=== PATIENT | male | born 1990 ===

== ENCOUNTER 2019-11-24 12:08 | Emergency (ER) | payer SELFPAY ==
[2019-11-24 13:02] VITALS: BP 111/80
--- NOTE | 2019-11-24 13:23 | UC ---
General HPI - HPI Summary HPI Summary: Patient here with his two brothers. They all work in the [employer]. He starts work at 5:30 AM normally gets about 5-6 hours of sleep a night (brothers states he does on occasion sleep for 10 hours) Went to heat up his breakfast around 9 and had a full tonic clonic seizure lasting about 5 minutes. EMS arrived and offered to take him to [place] but they were told it was not a good hospital so they came to [facility] urgent care. Patient denies any etOH or drug use. No recent illness or stressors. He had a seizure a year ago and was supposed to follow up with neurology but due to insurance reasons did not get in to see them. Prior to a year ago he had a seizure 6 years prior to that. MEds; reviewed Denies any symptoms at this time. No H/A. No SOB or CP - History of Current Complaint Chief Complaint: UCGeneralIllness Stated Complaint: SEIZURE Time Seen by Provider: 11/24/19 13:02 Pain Intensity: 4 - Allergy/Home Medications Allergies/Adverse Reactions: Allergies Allergy/AdvReac Type Severity Reaction Status Date / Time No Known Allergies Allergy Verified 11/24/19 12:51 Home Medications: Home Medications Ibuprofen TAB* [Advil TAB*] 200 mg PO Q6H PRN 11/24/19 [History Confirmed ] PMH/Surg Hx/FS Hx/Imm Hx Neurological History: Seizures - Surgical History Surgical History: None - Social History Alcohol Use: None Substance Use Type: None Smoking Status (MU): Never Smoked Tobacco Review of Systems All Other Systems Reviewed And Are Negative: Yes Physical Exam Triage Information Reviewed: Yes Appearance: Well-Appearing Vital Signs: Initial Vital Signs Temp 98.2 F 11/24/19 12:53 Pulse 78 11/24/19 12:53 Resp 15 11/24/19 12:53 BP 111/80 11/24/19 12:53 Pulse Ox 98 11/24/19 12:53 Vital Signs Reviewed: Yes ENT: Positive: Normal ENT inspection Neck: Positive: Supple, Nontender Respiratory: Positive: Lungs clear, Normal breath sounds Cardiovascular: Positive: RRR, No Murmur Neurological Exam: Normal Course/Dx - Course Course Of Treatment: This is a 29 yr old mostly german speaking who presents to urgent care after having a seizure this morning. Patients needs more of a workup than we can do here and likely a neurology consultation Declined EMS ride to [place]. [facility] does not have a neurologist Brothers are going to drive him directly to [facility] for further work up Sign out at [place] ER given to ALLEN Cazares - Diagnoses Provider Diagnosis: Seizure Discharge ED - Sign-Out/Discharge Documenting (check all that apply): Patient Departure All imaging exams completed and their final reports reviewed: No Studies - Discharge Plan Condition: Fair Disposition: HOME-RECOMMEND TO ED Patient Education Materials: Generalized Tonic Clonic Seizures (ED) Referrals: No Primary Care Phys,NOPCP [Primary Care Provider] - Additional Instructions: Recommend having your family drive you directly to [facility]'s Emergency Room for further work-up for your seizure [address] [place] - Billing Disposition and Condition Condition: FAIR Disposition: Home-Recommend to ED
== END 2019-11-24 13:23 | disposition home health service (06) ==
LOC: UCCORT 12:08
DX: R56.9 Unspecified convulsions (principal)
CPT/HCPCS: 99202; G0463

== ENCOUNTER 2019-11-24 14:17 | Emergency (ER) | payer SELFPAY ==
[2019-11-24 15:45] LABS: ABS Lymphocytes 1.2 10^3/ul (1.0-4.8); ABS Monocytes 0.4 10^3/ul (0-0.8); ABS Neutrophils 5.1 10^3/ul (1.5-7.7); Eosinophil % 0.2 %; Hematocrit 45 % (42-52); Hemoglobin 15.7 g/dL (14.0-18.0); Lymphocyte % 17.9 %; Mean Corpuscular HGB Conc 35 g/dL (31-36); Mean Corpuscular Hemoglobin 31 pg (27-31); Mean Corpuscular Volume 89 fL (80-94); Mean Platelet Volume 7.6 fL (7.4-10.4); Platelet Count 211 10^3/uL (150-450); Red Blood Count 5.05 10^6 /uL (4.18-5.48); Red Cell Distribution Width 13 % (10-15); White Blood Count 6.8 10^3/uL (3.5-10.8)
[2019-11-24 15:53] LABS: INR 1.03 (0.82-1.09)
[2019-11-24 16:06] LABS: Albumin 4.6 g/dL (3.2-5.2); Albumin/Globulin Ratio 1.9 (1-3); BUN/Creatinine Ratio 13.5 (8-20); Calcium 9.3 mg/dL (8.6-10.3); EGFR African American 113.7 (>60); Globulin 2.4 g/dL (2-4); Magnesium 2.2 mg/dL (1.9-2.7); Potassium 4.1 mmol/L (3.5-5.0); Total Bilirubin 0.8 mg/dL (0.2-1.0)
[2019-11-24 17:00] VITALS: BP 121/74
--- NOTE | 2019-11-24 17:04 | ED ---
Seizure - HPI Summary HPI Summary: This patient is a 29-year-old Portuguese-speaking otherwise healthy male presenting to the ED with a seizure which occurred this afternoon while at work on break and occurred for approximate 5 minutes. The seizure was a tonic- clonic seizure involving all extremities per friend at bedside. This was witnessed by several people. He states he had his first seizure proximally 6-8 years ago, his second seizure was approximately one year ago and he was referred to neurology. He was never able to go as they canceled his appointment. He denies biting his tongue. Denies any headache, confusion, memory loss. Denies hitting his head. He denies any pain whatsoever. He states he is not fatigued and does not feel confused at this time. He takes no medications. Alcohol rarely. He has never been on anticonvulsant medications. He has never seen a neurologist. - History Of Current Complaint Chief Complaint: EDSeizure Time Seen by Provider: 11/24/19 14:32 Hx Obtained From: Patient Onset/Duration: Sudden Onset Severity Of Seizure: Status Epilepticus Location Of Seizure: All Extremities Character: Generalized Clonic-Tonic Aggravating Factor(s): Nothing Alleviating Factor(s): Spontaneous Resolution - 5 min - Risk Factors SAH Risk Factors: Negative Meningitis Risk Factors: Negative SDH Risk Factor: Negative - Allergies/Home Medications Allergies/Adverse Reactions: Allergies Allergy/AdvReac Type Severity Reaction Status Date / Time No Known Allergies Allergy Verified 11/24/19 12:51 PMH/Surg Hx/FS Hx/Imm Hx Previously Healthy: Yes - Immunization History Hx Pertussis Vaccination: No Immunizations Up to Date: Yes Infectious Disease History: No Infectious Disease History: Denies: Traveled Outside the [place] in Last 30 Days - Social History Occupation: Employed Full-time Lives: With Family Alcohol Use: None Hx Substance Use: No Substance Use Type: Reports: None Smoking Status (MU): Never Smoked Tobacco Review of Systems Negative: Fever, Chills, Fatigue, Skin Diaphoresis Negative: Blurred Vision, Diplopia, Drainage Negative: Palpitations, Chest Pain Negative: Shortness Of Breath, Cough Genitourinary: Negative Positive: no symptoms reported, see HPI Negative: Arthralgia, Myalgia Skin: Negative All Other Systems Reviewed And Are Negative: Yes Physical Exam Triage Information Reviewed: Yes Vital Signs On Initial Exam: Initial Vitals Temp Pulse Resp BP Pulse Ox 97.4 F 76 22 116/76 99 11/24/19 14:20 11/24/19 14:20 11/24/19 14:20 11/24/19 14:20 11/24/19 14:20 Vital Signs Reviewed: Yes Appearance: Positive: Well-Appearing, Well-Nourished Skin: Positive: Warm, Skin Color Reflects Adequate Perfusion Head/Face: Positive: Normal Head/Face Inspection Eyes: Positive: EOMI, TAMY, Conjunctiva Clear ENT: Positive: Other - no evidence of laceration to the tongue Neck: Positive: Supple, No Lymphadenopathy Respiratory/Lung Sounds: Positive: Clear to Auscultation Cardiovascular: Positive: Pulses are Symmetrical in both Upper and Lower Extremities Musculoskeletal: Positive: Normal, Strength/ROM Intact Neurological: Positive: Speech Normal Psychiatric: Positive: Affect/Mood Appropriate AVPU Assessment: Alert Procedures - Sedation Patient Received Moderate/Deep Sedation with Procedure: No Diagnostics - Vital Signs Vital Signs Temp Pulse Resp BP Pulse Ox 11/24/19 14:20 97.4 F 76 22 116/76 99 - Laboratory Lab Results: Lab Results 11/24/19 11/24/19 11/24/19 Range/Units 15:39 15:39 15:39 WBC 6.8 (3.5-10.8) 10^3/uL RBC 5.05 (4.18-5.48) 10^6 /uL Hgb 15.7 (14.0-18.0) g/dL Hct 45 (42-52) % MCV 89 (80-94) fL MCH 31 (27-31) pg MCHC 35 (31-36) g/dL RDW 13 (10-15) % Plt Count 211 (150-450) 10^3/uL MPV 7.6 (7.4-10.4) fL Neut % (Auto) 75.3 % Lymph % (Auto) 17.9 % [place] % (Auto) 6.4 % Eos % (Auto) 0.2 % Baso % (Auto) 0.2 % Absolute Neuts (auto) 5.1 (1.5-7.7) 10^3/ul Absolute Lymphs (auto) 1.2 (1.0-4.8) 10^3/ul Absolute Monos (auto) 0.4 (0-0.8) 10^3/ul Absolute Eos (auto) 0.0 (0-0.6) 10^3/ul Absolute Basos (auto) 0.0 (0-0.2) 10^3/ul Absolute Nucleated RBC 0.0 10^3/ul Nucleated RBC % 0.0 INR (Anticoag Therapy) 1.03 (0.82-1.09) Sodium 138 (135-145) mmol/L Potassium 4.1 (3.5-5.0) mmol/L Chloride 104 (101-111) mmol/L Carbon Dioxide 26 (22-32) mmol/L Anion Gap 8 (2-11) mmol/L BUN 13 (6-24) mg/dL Creatinine 0.96 (0.67-1.17) mg/dL Est GFR ( Amer) 113.7 (>60) Est GFR (Non-Af Amer) 94.0 (>60) BUN/Creatinine Ratio 13.5 (8-20) Glucose 109 H (70-100) mg/dL Lactic Acid (0.5-2.0) mmol/L Calcium 9.3 (8.6-10.3) mg/dL Magnesium 2.2 (1.9-2.7) mg/dL Total Bilirubin 0.80 (0.2-1.0) mg/dL AST 20 (13-39) U/L ALT 21 (7-52) U/L Alkaline Phosphatase 58 (34-104) U/L Total Protein 7.0 (6.4-8.9) g/dL Albumin 4.6 (3.2-5.2) g/dL Globulin 2.4 (2-4) g/dL Albumin/Globulin Ratio 1.9 (1-3) 11/24/19 Range/Units 15:39 WBC (3.5-10.8) 10^3/uL RBC (4.18-5.48) 10^6 /uL Hgb (14.0-18.0) g/dL Hct (42-52) % MCV (80-94) fL MCH (27-31) pg MCHC (31-36) g/dL RDW (10-15) % Plt Count (150-450) 10^3/uL MPV (7.4-10.4) fL Neut % (Auto) % Lymph % (Auto) % [place] % (Auto) % Eos % (Auto) % Baso % (Auto) % Absolute Neuts (auto) (1.5-7.7) 10^3/ul Absolute Lymphs (auto) (1.0-4.8) 10^3/ul Absolute Monos (auto) (0-0.8) 10^3/ul Absolute Eos (auto) (0-0.6) 10^3/ul Absolute Basos (auto) (0-0.2) 10^3/ul Absolute Nucleated RBC 10^3/ul Nucleated RBC % INR (Anticoag Therapy) (0.82-1.09) Sodium (135-145) mmol/L Potassium (3.5-5.0) mmol/L Chloride (101-111) mmol/L Carbon Dioxide (22-32) mmol/L Anion Gap (2-11) mmol/L BUN (6-24) mg/dL Creatinine (0.67-1.17) mg/dL Est GFR ( Amer) (>60) Est GFR (Non-Af Amer) (>60) BUN/Creatinine Ratio (8-20) Glucose (70-100) mg/dL Lactic Acid 1.0 (0.5-2.0) mmol/L Calcium (8.6-10.3) mg/dL Magnesium (1.9-2.7) mg/dL Total Bilirubin (0.2-1.0) mg/dL AST (13-39) U/L ALT (7-52) U/L Alkaline Phosphatase (34-104) U/L Total Protein (6.4-8.9) g/dL Albumin (3.2-5.2) g/dL Globulin (2-4) g/dL Albumin/Globulin Ratio (1-3) Result Diagrams: 11/24/19 15:39 11/24/19 15:39 Lab Statement: Any lab studies that have been ordered have been reviewed, and results considered in the medical decision making process. Course/Dx - Course Course Of Treatment: On physical examination, patient appears well. No evidence of laceration to the tongue. No nystagmus noted. No neuro deficits. No weakness noted throughout. Good strength bilaterally in the upper or lower extremities. Discussed case with Dr. goldstein who will see patient in the ED. Recommended Keppra 750 twice a day until follow-up. Patient has a follow-up in 1 month with neurology. Brain CT obtained which is negative for any acute findings. Labs obtained which are WNL. - Diagnoses Provider Diagnoses: Seizure - Physician Notifications Discussed Care of Patient With: Kaleb Trujillo Instructed by Provider To: MD Will See In ED Discharge ED - Sign-Out/Discharge Documenting (check all that apply): Patient Departure - Discharge Plan Condition: Stable Disposition: HOME Prescriptions: levETIRAcetam [Keppra-] 750 mg PO BID #90 tab Patient Education Materials: Levetiracetam (By mouth), New-Onset Seizure in Adults (ED) Referrals: Kaleb Trujillo MD [Medical Doctor] - No Primary Care Phys,NOPCP [Primary Care Provider] - Additional Instructions: You will follow up with Dr. Trujillo or someone in the neurology clinic. Keppra 750 (1 tab) twice daily until you follow up with neurology Dec 22 at 9am with Jeni Montgomery - Billing Disposition and Condition Condition: STABLE Disposition: Home
--- NOTE | 2019-11-24 18:51 | CONS ---
NEUROLOGY CONSULTATION: DATE OF CONSULT: 11/24/19 - EMERGENCY DEPT. HISTORY OF PRESENT ILLNESS: Narendra is a 29-year-old male who presented to the [facility] ED after having a witnessed seizure. His first seizure was 8 years ago and this is his 3rd seizure since then. According to his friend at bedside, this morning at about 9 am, he was taking to a co-worker, he paused his conversation, his eyes rolled back, and he began to lean backwards. The coworker laid him down on the ground and he had full body convulsions that lasted approximately 3 minutes. It took him 2 minutes or so to come out of it. He vomited after the episode and complained of a headache. He was tired for about an hour after the seizure. He went to [facility] and refused transport, but was driven to the ED by his friends. His first seizure occurred at approximately 6 am while he was at work. His friends were alerted that he was having a seizure which was captured on video surveillance at work. They said that he had full body convulsions that lasted approximately 3 minutes. He was disoriented for about 5 minutes afterwards. He was taken to a hospital in [place] via ambulance, and he reports that he had some testing done at that time including an EEG that were all normal. He was not started on any medications at that time. One-year ago, he had a second seizure. His housemate heard him an odd scream coming from his room which was right next to his. He went to check on him and found him seizing in bed. This event appeared similar to today's seizure, lasted about 3 minutes, and took him a couple of minutes to come out of. He vomited afterwards. He has never had any incontinence with his seizures. No head injuries. He denies any jerking movements or staring spells. He has never been on anticonvulsants. He has not seen an outpatient neurologist. PAST MEDICAL HISTORY: Positive only for seizures. PAST SURGICAL HISTORY: Never had surgery. MEDICATIONS: He does not take any medications. ALLERGIES: No known drug allergies. FAMILY HISTORY: Negative for seizures. 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 PHYSICAL EXAM: His vital signs on arrival were temperature of 97.4, pulse rate 76, respiratory rate 22, O2 99% on room air, blood pressure 116/76. Narendra is alert and oriented, lying in the stretcher bed. He speaks Venezuelan. He has 2 friends at bedside. He is well groomed with normal development. Funduscopic exam revealed sharp disc margins. Cranial nerves II through XII were intact. Heart rate is regular, no murmurs. Lungs are clear. Abdomen is soft. Strength is 5/5 to the upper and lower extremities and equal bilaterally. Deep tendon reflexes are symmetric and intact. . LABORATORY DATA: He had labs done including a CBC, INR and a CMC that were unremarkable except for a blood glucose of 109. DIAGNOSTIC TEST: normal CT of brain ASSESSMENT AND PLAN: This is a 29-year-old beninese-speaking male who experienced his third seizure today. This was a witnessed generalized convulsive seizure. He will need to be started on an anticonvulsant and will begin Keppra 750 mg by mouth twice a day. I discussed the side effects of Keppra , most commonly reported being change in mood, such as depression, or anxiety. He will call if he experiences side effects. We will order an MRI and an EEG and follow up in the office in 4 to 6 weeks. We will get a Keppra level before then. [id number]/[facility] #: [id number] [facility]
== END 2019-11-24 16:58 | disposition home or self-care (01) ==
LOC: ED 14:17
DX: R56.9 Unspecified convulsions (principal)
CPT/HCPCS: 36415; 70450; 80053; 83605; 83735; 85025; 85610; 99283